=== PATIENT | female | born 1940 | race Caucasian/White ===

== ENCOUNTER 2018-08-12 07:35 | Day surgery (SDC) | payer OTHER, MEDICARE ==
[2018-08-12] MEDS ORDERED: IRON SUCROSE INJECTION 200 MG in SODIUM CHLORIDE 100 ML IVPB ONE (10:00)
[2018-08-12 16:09] VITALS: TEMP 97.9
[2018-08-12 16:10] VITALS: BP 146/60; PULSE 64
== END 2018-08-12 12:15 | disposition home or self-care (01) ==
LOC: JONCCHEMO 07:35 → J7W 11:08 → JONCCHEMO 12:15
PROVIDERS: ATTEND Internal Medicine Hematology & Oncology
PROC: 3E033GC Introduction of Other Therapeutic Substance into Peripheral Vein, Percutaneous Approach (ICD-10-PCS; principal; 2018-08-12)
DX: D50.9 Iron deficiency anemia, unspecified (principal)
CPT/HCPCS: 96365; J1756

== ENCOUNTER 2018-08-15 11:06 | Day surgery (SDC) | payer OTHER, MEDICARE ==
[2018-08-15] MEDS ORDERED: IRON SUCROSE INJECTION 100 MG in SODIUM CHLORIDE 100 ML IVPB ONE (13:45)
[2018-08-15 13:47] LABS: BASO % 0.4 % (0-2.0); EOS % 0.5 % (0-4.5); HEMATOCRIT 41.1 % (32.4-45.2); HEMOGLOBIN 14.3 GM/dL (10.7-15.3); LYMPH % 26.4 % (8-40); MCH 30.9 pg (25.7-33.7); MCHC 34.9 g/dl (32.0-36.0); MEAN CELL VOLUME 88.5 fl (80-96); MEAN PLT VOLUME 8.1 fl (7.5-11.1); MONO % 5.1 % (3.8-10.2); NEUT % 67.6 % (42.8-82.8); PLATELET COUNT 224 K/MM3 (134-434); RBC 4.64 M/mm3 (3.60-5.2); RDW 14.2 % (11.6-15.6); WHITE BLOOD COUNT 9.1 K/mm3 (4.0-10.0)
[2018-08-15 14:43] LABS: ALBUMIN 3.5 g/dl (3.4-5.0); ALK PHOS 56 U/L (45-117); ANION GAP 7 MMOL/L (8-16); BILIRUBIN,TOTAL 0.5 mg/dL (0.2-1); BLOOD UREA NITROGEN 16 mg/dL (7-18); CALCIUM 8.6 mg/dL (8.5-10.1); CHLORIDE 107 mmol/L (98-107); CO2 29 mmol/L (21-32); CREATININE 0.7 mg/dL (0.55-1.3); GLUCOSE,RANDOM 78 mg/dL (74-106); LDH 163 U/L (84-246); POTASSIUM 3.5 mmol/L (3.5-5.1); SGOT/AST 21 U/L (15-37); SGPT/ALT 26 U/L (13-61); SODIUM 142 mmol/L (136-145); TOT PROT 6.2 g/dl (6.4-8.2)
[2018-08-15 17:10] VITALS: TEMP 98.3
[2018-08-15 17:11] VITALS: BP 137/67; PULSE 70
[2018-08-16 11:28] LABS: RNP ANTIBODIES <0.2 AI (0.0-0.9)
== END 2018-08-15 15:30 | disposition home or self-care (01) ==
LOC: JONCNONCHE 11:06 → J7W 12:11 → JONCNONCHE 15:30
PROVIDERS: ATTEND Internal Medicine Hematology & Oncology
PROC: 3E033GC Introduction of Other Therapeutic Substance into Peripheral Vein, Percutaneous Approach (ICD-10-PCS; principal; 2018-08-15)
DX: D50.9 Iron deficiency anemia, unspecified (principal)
CPT/HCPCS: 36415; 80053; 82607; 82728; 83010; 83516; 83540; 83550; 83615; 84439; 84443; 85025; 85044; 86038; 86225; 86235; 86340; 86431; 96365; J1756

== ENCOUNTER 2018-08-22 09:41 | Day surgery (SDC) | payer OTHER, MEDICARE ==
[2018-08-22] MEDS ORDERED: IRON SUCROSE INJECTION 200 MG in SODIUM CHLORIDE 100 ML IVPB ONE (15:30)
[2018-08-22 17:17] VITALS: TEMP 97.6
[2018-08-22 17:19] VITALS: BP 150/69; PULSE 72
== END 2018-08-22 16:15 | disposition home or self-care (01) ==
LOC: JONCNONCHE 09:41 → J7W 14:35 → JONCNONCHE 16:15
PROVIDERS: ATTEND Internal Medicine Hematology & Oncology
PROC: 3E033GC Introduction of Other Therapeutic Substance into Peripheral Vein, Percutaneous Approach (ICD-10-PCS; principal; 2018-08-22)
DX: D50.9 Iron deficiency anemia, unspecified (principal); I10 Essential (primary) hypertension
CPT/HCPCS: 96365; J1756

== ENCOUNTER 2018-08-25 07:03 | Day surgery (SDC) | payer OTHER, MEDICARE ==
[2018-08-25] MEDS ORDERED: IRON SUCROSE INJECTION 200 MG in SODIUM CHLORIDE 100 ML IVPB ONE (10:00)
[2018-08-25 17:51] VITALS: TEMP 98.3
[2018-08-25 17:55] VITALS: BP 119/55; PULSE 68
== END 2018-08-25 15:40 | disposition home or self-care (01) ==
LOC: JONCNONCHE 07:03 → J7W 14:24 → JONCNONCHE 15:40
PROVIDERS: ATTEND Internal Medicine Hematology & Oncology
PROC: 3E033GC Introduction of Other Therapeutic Substance into Peripheral Vein, Percutaneous Approach (ICD-10-PCS; principal; 2018-08-25)
DX: D50.9 Iron deficiency anemia, unspecified (principal)
CPT/HCPCS: 96365; J1756

== ENCOUNTER 2019-02-28 15:18 | Day surgery (SDC) | payer OTHER, MEDICARE ==
[2019-02-28] MEDS ORDERED: IRON SUCROSE INJECTION 200 MG in SODIUM CHLORIDE 100 ML IVPB ONE (16:00)
[2019-02-28 17:03] LABS: BASO % 0.3 % (0-2.0); EOS % 0.9 % (0-4.5); HEMATOCRIT 43.4 % (32.4-45.2); HEMOGLOBIN 14.3 GM/dL (10.7-15.3); LYMPH % 32.2 % (8-40); MCH 28.8 pg (25.7-33.7); MEAN CELL VOLUME 87.2 fl (80-96); MEAN PLT VOLUME 8.8 fl (7.5-11.1); MONO % 7.2 % (3.8-10.2); NEUT % 59.4 % (42.8-82.8); PLATELET COUNT 252 K/MM3 (134-434); RBC 4.98 M/mm3 (3.60-5.2); RDW 14.3 % (11.6-15.6); WHITE BLOOD COUNT 7.3 K/mm3 (4.0-10.0)
[2019-02-28 17:30] LABS: ALBUMIN 3.8 g/dl (3.4-5.0); BILIRUBIN,TOTAL 0.5 mg/dL (0.2-1); CALCIUM 9.4 mg/dL (8.5-10.1); CREATININE 0.9 mg/dL (0.55-1.3); POTASSIUM 4.3 mmol/L (3.5-5.1); TOT PROT 6.9 g/dl (6.4-8.2)
[2019-02-28 17:44] VITALS: BP 156/79; PULSE 64; TEMP 97.4
[2019-03-02 17:14] LABS: GLIADIN ANTIBODY IGA 5 units (0-19); GLIADIN ANTIBODY IGG 3 units (0-19); TRANSGLUTAMINASE IGG < 2 U/mL (0-5)
[2019-03-03 14:13] LABS: HGB SOLUBILITY Negative (Negative); Hgb C 0 % (0.0); Hgb F 0 % (0.0-2.0); Hgb S 0 % (0.0)
[2019-03-05 11:53] LABS: HOMOCYSTINE-PLASMA OR SERUM 10.9 umol/L (0.0-15.0)
== END 2019-02-28 17:45 | disposition home or self-care (01) ==
LOC: JONCNONCHE 15:18 → J7W 15:20 → JONCNONCHE 17:45
PROVIDERS: ATTEND Internal Medicine Hematology & Oncology
PROC: 3E033GC Introduction of Other Therapeutic Substance into Peripheral Vein, Percutaneous Approach (ICD-10-PCS; principal; 2019-02-28)
DX: D50.9 Iron deficiency anemia, unspecified (principal)
CPT/HCPCS: 36415; 80053; 82784; 83010; 83021; 83090; 83516; 83615; 83921; 84439; 84443; 85025; 85044; 85651; 85660; 86140; 86340; 87086; 96365; J1756